=== PATIENT | male | born 1990 | race Caucasian/White ===

== ENCOUNTER 2020-05-26 11:46 | Emergency (ER) | payer SELFPAY ==
--- NOTE | 2020-05-26 14:01 | RAD ---
LUMBAR SPINE 3 VIEWS: HISTORY: Back pain. FINDINGS: Lumbar vertebrae maintain height and alignment. Disk spaces are preserved. No evidence of spondylol isthesis. IMPRESSION: Unremarkable lumbar spine. POS: [id number]
== END 2020-05-26 13:00 | disposition home or self-care (01) ==
LOC: MADERS 11:46
DX: S39.012A Strain of muscle, fascia and tendon of lower back, initial encounter (principal); F17.220 Nicotine dependence, chewing tobacco, uncomplicated; V89.2XXA Person injured in unspecified motor-vehicle accident, traffic, initial encounter
CPT/HCPCS: 72100